=== PATIENT | male | born 1955 | race Asian ===

== ENCOUNTER 2017-01-06 10:59 | Emergency (ER) | payer OTHER ==
[~2017-01-06] VITALS: Ht 165.1 cm; Wt 88.0 kg
[2017-01-06 13:17] LABS: BASOPHIL % 0.6 % (0-2); PLATELET COUNT 235 x10^3mcL (130-400); RED CELL DISTRIBUTION WIDTH 12.2 % (11.5-14.5)
[2017-01-06 13:33] LABS: CALCIUM 8.8 mg/dL (8.5-10.1); CARBON DIOXIDE 28.4 mmol/L (21-32); CHLORIDE SERUM 101 mmol/L (98-107); CREATININE SERUM 0.9 mg/dL (0.7-1.3); GFR1 > 60 mL/min; GLUCOSE SERUM 124 mg/dL (74-106); POTASSIUM SERUM 3.9 mmol/L (3.5-5.1); SODIUM SERUM 136 mmol/L (136-145)
[2017-01-06 13:37] LABS: ALBUMIN 3.8 g/dL (3.4-5.0); ALKALINE PHOSPHATASE 95 U/L (46-116); ALT/SGPT 45 U/L (16-63); AST/SGOT 27 U/L (15-37); BILIRUBIN TOTAL 0.93 mg/dL (0.20-1.00); HDL CHOLESTEROL 48 mg/dL (40-60); LIPASE 168 IU/L (73-393); TRIGLYCERIDES 113 mg/dL (<150)
[2017-01-06 13:38] LABS: CHOLESTEROL 131 mg/dL (<200); CHOLESTEROL/HDL RATIO 2.7
[2017-01-06 13:57] VITALS: BP 139/88
[2017-01-06 14:06] LABS: T3 TOTAL 1.11 ng/mL
[2017-01-06 14:06] LABS: microscopic required? NO
[2017-01-06 14:19] LABS: UA SPECIFIC GRAVITY <=1.005 (1.005-1.035); urine erythrocyte NEGATIVE (NEGATIVE)
[2017-01-06 18:28] LABS: FREE T4 0.97 ng/dL (0.76-1.46); FREE THYROXINE INDEX 2.7 ug/dL (1.4-4.5); T4(THYROXINE) 7.4 ug/dL (4.7-13.3)
== END 2017-01-06 15:37 | disposition home or self-care (01) ==
LOC: ED 10:59
PROVIDERS: Specialist
DX: R42 Dizziness and giddiness (principal); E78.00 Pure hypercholesterolemia, unspecified; I10 Essential (primary) hypertension; I73.9 Peripheral vascular disease, unspecified
CPT/HCPCS: 82962; 83880; 84439; J7030; Q0092

== ENCOUNTER 2018-03-06 11:15 | Inpatient (IN) | payer OTHER ==
[~2018-03-06] VITALS: Ht 165.1 cm; Wt 88.9 kg
[2018-03-06 11:19] VITALS: Ht 165.1 cm; Wt 88.9 kg
[2018-03-06 13:32] LABS: BASOPHIL % 0.4 % (0-2); PLATELET COUNT 240 x10^3mcL (130-400); RED CELL DISTRIBUTION WIDTH 12.3 % (11.5-14.5)
[2018-03-06 13:38] LABS: CALCIUM 8.6 mg/dL (8.5-10.1); CARBON DIOXIDE 27.8 mmol/L (21-32); CHLORIDE SERUM 102 mmol/L (98-107); CREATININE SERUM 0.9 mg/dL (0.7-1.3); GFR1 > 60 mL/min; GLUCOSE SERUM 141 mg/dL (74-106); POTASSIUM SERUM 4.2 mmol/L (3.5-5.1); SODIUM SERUM 138 mmol/L (136-145)
[2018-03-06 13:44] LABS: ALBUMIN 3.8 g/dL (3.4-5.0); ALKALINE PHOSPHATASE 87 U/L (46-116); ALT/SGPT 47 U/L (16-63); AST/SGOT 25 U/L (15-37); BILIRUBIN TOTAL 0.67 mg/dL (0.20-1.00); TOTAL PROTEIN, SERUM 7.8 g/dL (6.4-8.2)
[2018-03-06] MEDS ORDERED: ALLOPURINOL100 MG PO (15:09)
[2018-03-06] MEDS ORDERED: ASPIR 8181 MG PO (15:09)
[2018-03-06] MEDS ORDERED: LIPI10 PO (15:10)
[2018-03-06] MEDS ORDERED: CARVEDILOL3.125 M1 PO (15:10)
[2018-03-06] MEDS ORDERED: CLOPIDOGREL75 M1 PO (15:10)
[2018-03-06 15:12] LABS: T3 TOTAL 1.05 ng/mL
[2018-03-06 15:27] LABS: MAGNESIUM 2.2 mg/dL (1.8-2.4); PHOSPHOROUS 3.4 mg/dL (2.5-4.9)
[2018-03-06 15:31] VITALS: BP 136/90
[2018-03-06 15:47] LABS: FREE T4 0.83 ng/dL (0.76-1.46); T4(THYROXINE) 5.6 ug/dL (4.7-13.3)
[2018-03-06 15:55] LABS: UA SPECIFIC GRAVITY <=1.005 (1.005-1.035); microscopic required? NO; urine erythrocyte NEGATIVE (NEGATIVE)
[2018-03-06 21:30] VITALS: BP 124/73
[2018-03-07 00:14] LABS: AMPHETAMINE QUAL UR NONE DETECTED (See below)
[2018-03-07 05:42] VITALS: BP 118/62
[2018-03-07 07:58] VITALS: BP 115/66
[2018-03-07 08:43] LABS: CALCIUM 8.7 mg/dL (8.5-10.1); CARBON DIOXIDE 28.1 mmol/L (21-32); CHLORIDE SERUM 104 mmol/L (98-107); CREATININE SERUM 0.8 mg/dL (0.7-1.3); GFR1 > 60 mL/min; GLUCOSE SERUM 95 mg/dL (74-106); POTASSIUM SERUM 3.9 mmol/L (3.5-5.1); SODIUM SERUM 141 mmol/L (136-145)
[2018-03-07 08:44] LABS: BASOPHIL % 0.4 % (0-2); PLATELET COUNT 210 x10^3mcL (130-400); RED CELL DISTRIBUTION WIDTH 12.4 % (11.5-14.5)
[2018-03-07 12:14] VITALS: BP 122/72
== END 2018-03-07 14:06 | disposition home or self-care (01) | DRG 206 ==
LOC: ED 11:15 → DU 14:42
PROVIDERS: Family Medicine
DX: M94.0 Chondrocostal junction syndrome [Tietze] (principal); I10 Essential (primary) hypertension; E78.5 Hyperlipidemia, unspecified; M10.9 Gout, unspecified; I25.2 Old myocardial infarction; Z79.82 Long term (current) use of aspirin; Z68.32 Body mass index [BMI] 32.0-32.9, adult
CPT/HCPCS: 83880; 84439; J7030

== ENCOUNTER 2018-09-11 08:29 | Inpatient (IN) | payer OTHER ==
[~2018-09-11] VITALS: Ht 165.1 cm; Wt 86.7 kg
[~2018-09-11 08:29] MED LIST: ALLOPURINOL100 MG PO; ASPIR 8181 MG PO; CARVEDILOL3.125 M1 PO; CLOPIDOGREL75 M1 PO; LIPI10 PO
[2018-09-11 08:31] VITALS: Ht 165.1 cm; Wt 86.7 kg
[2018-09-11 08:55] LABS: BASOPHIL % 0.5 % (0-2); PLATELET COUNT 212 x10^3mcL (130-400); RED CELL DISTRIBUTION WIDTH 12.6 % (11.5-14.5)
[2018-09-11 09:01] LABS: CALCIUM 8.6 mg/dL (8.5-10.1); CARBON DIOXIDE 28.4 mmol/L (21-32); CHLORIDE SERUM 102 mmol/L (98-107); CREATININE SERUM 0.9 mg/dL (0.7-1.3); GFR1 > 60 mL/min; GLUCOSE SERUM 175 mg/dL (74-106); SODIUM SERUM 137 mmol/L (136-145)
[2018-09-11 09:03] LABS: ALBUMIN 3.6 g/dL (3.4-5.0); ALKALINE PHOSPHATASE 87 U/L (46-116); ALT/SGPT 51 U/L (16-63); AST/SGOT 23 U/L (15-37); BILIRUBIN TOTAL 0.8 mg/dL (0.20-1.00); TOTAL PROTEIN, SERUM 7.6 g/dL (6.4-8.2)
[2018-09-11] MEDS ORDERED: ALLOPURINOL100 MG PO (09:44)
[2018-09-11] MEDS ORDERED: COLCHICINE0.6 M1 PO (09:45)
[2018-09-11] MEDS ORDERED: NITROGLYCERIN0.4 MG SL (09:45)
[2018-09-11 14:21] VITALS: BP 135/71
[2018-09-11 16:28] VITALS: BP 110/77
[2018-09-11 17:15] VITALS: BP 145/76
[2018-09-11 19:51] VITALS: BP 154/78
[2018-09-12 05:36] VITALS: BP 125/69
[2018-09-12 06:30] LABS: CALCIUM 9.1 mg/dL (8.5-10.1); CARBON DIOXIDE 27.9 mmol/L (21-32); CHLORIDE SERUM 103 mmol/L (98-107); CREATININE SERUM 0.8 mg/dL (0.7-1.3); GFR1 > 60 mL/min; GLUCOSE SERUM 106 mg/dL (74-106); MAGNESIUM 2.3 mg/dL (1.8-2.4); PHOSPHOROUS 3.3 mg/dL (2.5-4.9); SODIUM SERUM 139 mmol/L (136-145)
[2018-09-12 07:35] LABS: BASOPHIL % 0.6 % (0-2); PLATELET COUNT 204 x10^3mcL (130-400); RED CELL DISTRIBUTION WIDTH 12.4 % (11.5-14.5)
[2018-09-12 09:21] VITALS: BP 109/60
[2018-09-12 11:47] VITALS: BP 109/60
== END 2018-09-12 12:23 | disposition home or self-care (01) | DRG 311 ==
LOC: ED 08:29 → DU 10:57
PROVIDERS: ADMIT Internal Medicine
DX: I24.9 Acute ischemic heart disease, unspecified (principal); I10 Essential (primary) hypertension; E78.5 Hyperlipidemia, unspecified; E66.9 Obesity, unspecified; R73.9 Hyperglycemia, unspecified; I25.2 Old myocardial infarction; Z79.82 Long term (current) use of aspirin; Z87.891 Personal history of nicotine dependence; Z95.5 Presence of coronary angioplasty implant and graft
CPT/HCPCS: 83880; C9113; Q0092